=== PATIENT | male | born 1960 | race African-American/Black ===

== ENCOUNTER → 2017-05-12 | Outpatient (CLI) | payer MEDICARE ==
--- NOTE | ~2017-05-12 | MR160 ---
[facility] A Service of [facility] RADIOLOGY TEXT RESULTS PATIENT: FELECIA TOLBERT LOCATION: [facility] : 56 UNIT #: [id number] AGE: [address]: VANIA DELUNA SEX: M ORDER DR: [id number] [address] [address] [id number] O MR#: [id number] Acc #: [id number] NAME: FELECIA TOLBERT : 1960 SEX: M STUDY DATE/TIME: 05/12/2017 9:11 UNIT: [facility] ROOM: STUDY DESCRIPTION: MR Shoulder W Contrast Lt Attending Physician: Vania Deluna M.D. Referring Physician: Vania Deluna M.D. Ordering Physician: Gautam Bardales Primary Care Physician: Jignesh Bardales MRI CENTER REPORT This report is preliminary unless electronic signature is present. 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 History sheet states no known injury. No shoulder surgery. Pain for less than 6 months with limited range of motion decreased strength. Arthrogram performed at [facility]. COMPARISON Left shoulder radiographs 04/27/2017 and left shoulder arthrogram 05/12/2017. FINDINGS Multiple series were performed after the fluoroscopic injection of dilute gadolinium contrast. Series include an abduction - external rotation position sequence. There is [id number] hypertrophic AC joint arthrosis with capsuloligamentous thickening and mild osteophyte formation. Coracoclavicular and coracoacromial ligaments are intact. There is a 10 x 9 mm (transverse x AP) partial undersurface articular sided anterior insertional footprint supraspinatus rim-rent tear. It is greater than 50% in tendon thickness (at least 75%). There is no full-thickness tear or contrast in the subacromial - subdeltoid bursa. There is mild inflammation in the bursa. There is moderate infraspinatus tendinosis without a tear. Subscapularis tendinosis is noted without a tear. Contrast in the subscapularis tendon is probably iatrogenic from the arthrogram. [facility]. [facility] A Service of [facility] RADIOLOGY TEXT RESULTS PATIENT: FELECIA TOLBERT LOCATION: [facility] : 56 UNIT #: [id number] AGE: [address]: VANIA DELUNA SEX: M ORDER DR: The biceps anchor, biceps tendon, and labrum are unremarkable. Glenohumeral joint shows no chondral or osteochondral lesion or loose body. Glenohumeral ligaments are intact. There is no marrow lesion, fracture, or muscle abnormality. IMPRESSION 1. 10 x 9 mm partial undersurface anterior insertional footprint supraspinatus rim-rent tear at least 75% in tendon thickness. There is no contrast extension to the subacromial - subdeltoid bursa or full-thickness component. 2. Infraspinatus and subscapularis tendinosis without a tear. 3. Acromioclavicular joint arthrosis as above. Dictated by... Ebony Youngblood M.D. THIS IS AN ELECTRONICALLY VERIFIED REPORT Ebony Youngblood M.D. at 05/13/2017 11:19 AM IWONA/ever TD: 05/13/2017 11:05 JOB #: [id number] MRI CENTER REPORT Page 1 of 1
== END | disposition home or self-care (01) ==
LOC: SMRI 07:38
DX: M19.012 Primary osteoarthritis, left shoulder (principal); M25.812 Other specified joint disorders, left shoulder; M75.112 Incomplete rotator cuff tear or rupture of left shoulder, not specified as traumatic; M75.82 Other shoulder lesions, left shoulder
CPT/HCPCS: 73222

== ENCOUNTER → 2017-05-12 | Outpatient (CLI) | payer MEDICARE ==
--- NOTE | ~2017-05-12 | XA32 ---
[facility] A Service [facility] RADIOLOGY TEXT RESULTS PATIENT: FELECIA TOLBERT LOCATION: [facility] : 56 UNIT #: [id number] AGE: [address]: VANIA DELUNA SEX: M ORDER DR: [id number] [place], [place] [address] [id number] O MR#: [id number] Acc #: [id number] NAME: FELECIA TOLBERT : 1960 SEX: M STUDY DATE/TIME: 05/12/2017 8:25 UNIT: [facility] ROOM: STUDY DESCRIPTION: XA Arthrogram Shoulder Lt Attending Physician: Vania Deluna M.D. Referring Physician: Vania Deluna M.D. Ordering Physician: Physician Non-Staff Primary Care Physician: Jignesh Bardales MEDICAL IMAGING REPORT This report is preliminary unless electronic signature is present EXAM Left shoulder arthrogram. HISTORY Pain in left shoulder from lifting, chronic. PROCEDURE Procedure, attendant risks, and options were discussed with the patient. He understands and wishes to proceed. The patient was placed in the supine position. An appropriate site was chosen over the left shoulder joint with the shoulder held in external rotation. The skin was prepped with chlorhexidine solution and draped. Utilizing maximal sterile barrier technique and under local anesthesia, a 22-gauge needle was inserted and dilute gadolinium and contrast was injected into the joint. A total of 4 spot radiographs were obtained. There is no obvious full-thickness tear. Total fluoroscopy time for the procedure was 1.2 minutes. CONCLUSION Successful left shoulder arthrogram. No obvious full-thickness tear. Dictated by... Alonso Delgado M.D. THIS IS AN ELECTRONICALLY VERIFIED REPORT Alonso Delgado M.D. at 05/15/2017 10:22 AM ASHANTI/lani TD: 05/14/2017 12:36 JOB #: [id number] MEDICAL IMAGING REPORT [facility] A Service [facility] RADIOLOGY TEXT RESULTS PATIENT: FELECIA TOLBERT LOCATION: [facility] #: [id number] : 56 UNIT #: [id number] AGE: [address]: VANIA DELUNA SEX: M ORDER DR: Page 1 of 1 COPY
== END | disposition home or self-care (01) ==
LOC: CIVR 06:47
DX: M75.112 Incomplete rotator cuff tear or rupture of left shoulder, not specified as traumatic (principal); M75.82 Other shoulder lesions, left shoulder; M19.012 Primary osteoarthritis, left shoulder
CPT/HCPCS: 73040; 73222; Q9967